=== PATIENT | male | born 1940 | race African-American/Black ===

== ENCOUNTER → 2018-07-01 | Emergency (ER) | payer MEDICARE, OTHER ==
[~2018-07-01] VITALS: Ht 170.2 cm; Wt 82.0 kg
[~2018-07-01] MED LIST: tranexamic acid 100mg/ml inj. TP ONE
--- NOTE | 2018-07-01 01:04 | NUR ---
dr maza at bedside spraying txa to right nares and nose clip reapplied. at bedside.
[2018-07-01 01:24] VITALS: BP 116/73
--- NOTE | 2018-07-01 01:24 | NUR ---
dr maza talking with pt and . bleeding to the nose has stopped. pt now dc ready
--- NOTE | 2018-07-01 01:35 | NUR ---
pt stood up and nose began to bleed intermittently again and pt and concerned. Dr. maza back in to talk with them and explained that he is still ok to dc and no further treatment needed at this time as he does not want to placed anything into the nostril at this time. Pt is agreeble to dc now. stable vs.
== END | disposition home or self-care (01) ==
LOC: ER 00:27
DX: R04.0 Epistaxis (principal); J44.9 Chronic obstructive pulmonary disease, unspecified; E11.9 Type 2 diabetes mellitus without complications
CPT/HCPCS: 99282

== ENCOUNTER 2020-04-30 10:10 | Emergency (ER) | payer MEDICARE, OTHER ==
[~2020-04-30] VITALS: Ht 167.6 cm; Wt 94.1 kg
[~2020-04-30 10:10] MED LIST changes: +ALLO100T PO; +GABA-530 PO; +HYDR120O2 TOP; +LOSA1TAB3 PO; +METF1000 PO; +MONT10TA26 PO; +OMEP-50 PO; +PRAV20TA4 PO; +SENN-263 PO; +SILD100T PO; +TIOT18CA3 INH; -tranexamic acid 100mg/ml inj. TP ONE
[2020-04-30] MEDS ORDERED: azithromycin/NS 500mg/250ml 250 ML IV ONE (11:10)
[2020-04-30] MEDS ORDERED: CefTRIAXone/D5W-Rocephin 1gm 50 ML IV ONE (11:10)
[2020-04-30 13:06] LABS: C-REACTIVE PROTEIN 6.75 MG/DL (0.0-0.5)
[2020-04-30] MEDS ORDERED: AZIT-63 PO (14:40)
[2020-04-30 15:23] VITALS: BP 141/81
== END 2020-04-30 15:25 | disposition home or self-care (01) ==
LOC: ER 10:11
DX: U07.1 COVID-19 (principal); R07.89 Other chest pain; R50.9 Fever, unspecified; R05 Cough; R06.02 Shortness of breath; R53.1 Weakness; J44.9 Chronic obstructive pulmonary disease, unspecified; E11.9 Type 2 diabetes mellitus without complications; Z90.49 Acquired absence of other specified parts of digestive tract; Z79.899 Other long term (current) drug therapy
CPT/HCPCS: 36415; 71045; 82728; 83605; 83615; 84145; 86140; 87040; 87635; 96365; 96368; 99285; C9803; J0456; J0696

== ENCOUNTER 2022-08-12 04:13 | Emergency (ER) | payer OTHER, BC ==
[~2022-08-12] VITALS: Ht 167.6 cm; Wt 78.2 kg
[~2022-08-12 04:13] MED LIST changes: +LOSA-420 PO; -LOSA1TAB3 PO; +MONT-40 PO; -MONT10TA26 PO; -OMEP-50 PO; +OMEP20CA16 PO
[2022-08-12 04:17] VITALS: BP 135/72
--- NOTE | 2022-08-12 04:46 | NUR ---
WOUND CLEANED WITH 100ML NACL
[2022-08-12] MEDS ORDERED: LIDOCAINE 2%/EPI 1:100,000 inj. Multi-dose 20 ML VIAL SQ ONE (04:50)
--- NOTE | 2022-08-12 05:49 | NUR ---
DRESSING APPLIED TO LAC REPAIR
== END 2022-08-12 05:50 | disposition home or self-care (01) ==
LOC: ER 04:15
DX: S01.311A Laceration without foreign body of right ear, initial encounter (principal); E11.9 Type 2 diabetes mellitus without complications; J44.9 Chronic obstructive pulmonary disease, unspecified; Z79.899 Other long term (current) drug therapy; Z79.1 Long term (current) use of non-steroidal anti-inflammatories (NSAID); X58.XXXA Exposure to other specified factors, initial encounter; Y93.89 Activity, other specified; Y92.89 Other specified places as the place of occurrence of the external cause; Y99.8 Other external cause status
CPT/HCPCS: 12013; 99282; A6449

== ENCOUNTER 2022-08-17 13:55 | Emergency (ER) | payer OTHER, BC ==
[~2022-08-17] VITALS: Ht 170.2 cm; Wt 76.8 kg
[2022-08-17 14:10] VITALS: BP 149/74
== END 2022-08-17 19:11 | disposition home or self-care (01) ==
LOC: ER 13:56
DX: S01.81XD Laceration without foreign body of other part of head, subsequent encounter (principal); J44.9 Chronic obstructive pulmonary disease, unspecified; E11.9 Type 2 diabetes mellitus without complications; Z90.49 Acquired absence of other specified parts of digestive tract; Z79.84 Long term (current) use of oral hypoglycemic drugs; Z79.899 Other long term (current) drug therapy; X58.XXXD Exposure to other specified factors, subsequent encounter
CPT/HCPCS: 99281; 99282

== ENCOUNTER 2023-04-19 18:17 | Emergency (ER) | payer OTHER, BC ==
[~2023-04-19] VITALS: Ht 170.2 cm; Wt 64.4 kg
[2023-04-19 18:32] VITALS: TEMP 98.5
[2023-04-19] MEDS ORDERED: HYDROcodone/acetaminophen 5mg/325mg tablet PO ONE (21:35)
[2023-04-19 22:10] LABS: BASOPHILS % (AUTO) 0.4 % (0-1); EOSINOPHILS # (AUTO) 0.1 X10'3 (0-0.9); EOSINOPHILS % (AUTO) 0.9 % (0-6); HEMATOCRIT 34.8 % (42.0-52.0); HEMOGLOBIN 11.7 g/dl (14.0-17.9); LYMPHOCYTES # (AUTO) 1.2 X10'3 (1.1-4.8); LYMPHOCYTES % (AUTO) 11.9 % (21-51); MEAN CORPUSCULAR HEMOGLOBIN 30.8 PG (27.0-31.0); MEAN CORPUSCULAR HGB CONC 33.7 g/dL (33.0-36.5); MEAN CORPUSCULAR VOLUME 91.6 FL (78-98); MEAN PLATELET VOLUME 7.3 FL (7.4-10.4); MONOCYTES # (AUTO) 0.9 X10'3 (0-0.9); MONOCYTES % (AUTO) 8.8 % (2-12); NEUTROPHILS # (AUTO) 7.7 X10'3 (1.8-7.7); PLATELET COUNT 174 X10'3 (140-440); RED CELL DISTRIBUTION WIDTH 15.2 % (11.5-14.5); WHITE BLOOD COUNT 9.9 X10'3 (4.5-11.0)
[2023-04-19 22:22] LABS: BILIRUBIN,URINE NEGATIVE (Neg); CLARITY,URINE CLEAR (Clear); COLOR,URINE YELLOW (Yellow); GLUCOSE, URINE NEGATIVE (Neg); KETONES,URINE TRACE mg/dl (Neg); LEUKOCYTE ESTERASE ,URINE NEGATIVE (Neg); NITRITES, URINE NEGATIVE (Neg); OCCULT BLOOD,URINE SMALL (Neg); PH,URINE 5.5 (4.8-8.0); PROTEIN,URINE NEGATIVE (Neg)
[2023-04-19 22:27] LABS: ALBUMIN 3.5 G/DL (3.4-5.0); ANION GAP 7 (8-16); BLOOD UREA NITROGEN 13 MG/DL (7-18); BUN/CREATININE RATIO 11.3 (10.0-20.0); CALCIUM 9.9 MG/DL (8.5-10.1); CHLORIDE 104 MMOL/L (99-107); CREATININE 1.15 MG/DL (0.60-1.10); GLUCOSE 88 MG/DL (70-104); POTASSIUM 3.7 MMOL/L (3.5-5.1); SODIUM 140 MMOL/L (135-145); TOTAL CARBON DIOXIDE 29.2 MMOL/L (24-32); eCRCL 44 ML/MIN; eGFR 73 ML/MIN
[2023-04-19 22:30] LABS: UA COLLECTION TYPE CLN CATCH MIDSTREAM
[2023-04-19 22:32] LABS: BACTERIA,URINE NONE SEEN /HPF (Neg); MUCUS STRANDS NONE SEEN /LPF (Neg); RBC,URINE 0-2 /HPF (0-2); SQUAMOUS EPITHELIAL CELL,UR FEW /LPF (FEW); WBC,URINE 0-4 /HPF (0-4)
[2023-04-19 23:45] VITALS: BP 151/75; PULSE 65; RESP 16; O2SAT 99
== END 2023-04-20 00:31 | disposition home or self-care (01) ==
LOC: ER 18:18
DX: I80.02 Phlebitis and thrombophlebitis of superficial vessels of left lower extremity (principal); J44.9 Chronic obstructive pulmonary disease, unspecified; E11.9 Type 2 diabetes mellitus without complications; Z79.899 Other long term (current) drug therapy; Z90.49 Acquired absence of other specified parts of digestive tract
CPT/HCPCS: 36415; 73560; 80048; 81001; 85025; 93970; 99284

== ENCOUNTER 2024-02-01 03:40 | Emergency (ER) | payer BC, OTHER ==
[~2024-02-01] VITALS: Ht 167.6 cm; Wt 189.0 kg
[2024-02-01] MEDS: benzonatate 100mg capsule PO ONE (05:02)
[2024-02-01] MEDS: ipratropium/albuterol 3ml nebule NEB ONE (05:06)
[2024-02-01 05:09] VITALS: PULSE 71; RESP 16; O2SAT 99
[2024-02-01 05:16] VITALS: PULSE 61; RESP 18; O2SAT 100
[2024-02-01 05:30] LABS: BASOPHILS % (AUTO) 1.3 % (0-1); EOSINOPHILS # (AUTO) 0.1 X10'3 (0-0.9); EOSINOPHILS % (AUTO) 1.6 % (0-6); HEMATOCRIT 33.4 % (42.0-52.0); HEMOGLOBIN 11.2 g/dl (14.0-17.9); LYMPHOCYTES # (AUTO) 1.1 X10'3 (1.1-4.8); LYMPHOCYTES % (AUTO) 15.3 % (21-51); MEAN CORPUSCULAR HEMOGLOBIN 30.1 PG (27.0-31.0); MEAN CORPUSCULAR HGB CONC 33.4 g/dL (33.0-36.5); MONOCYTES # (AUTO) 0.9 X10'3 (0-0.9); MONOCYTES % (AUTO) 12.9 % (2-12); NEUTROPHILS % (AUTO) 68.9 % (42-75); PLATELET COUNT 196 X10'3 (140-440); RED BLOOD COUNT 3.72 X10'6 (4.70-6.10); RED CELL DISTRIBUTION WIDTH 15.5 % (11.5-14.5); WHITE BLOOD COUNT 7.3 X10'3 (4.5-11.0)
[2024-02-01 05:31] LABS: BASOPHILS # (AUTO) 0.1 X10'3 (0-0.2)
[2024-02-01 05:55] LABS: ALBUMIN 2.9 G/DL (3.4-5.0); ANION GAP 7 (8-16); BLOOD UREA NITROGEN 21 MG/DL (7-18); BUN/CREATININE RATIO 16.7 (10.0-20.0); CALCIUM 9.2 MG/DL (8.5-10.1); CHLORIDE 106 MMOL/L (99-107); CREATININE 1.26 MG/DL (0.60-1.10); GLUCOSE 103 MG/DL (70-104); POTASSIUM 3.2 MMOL/L (3.5-5.1); PRO BRAIN NATRIURETIC PEPTIDE 197 PG/ML (0-450); SODIUM 138 MMOL/L (135-145); TOTAL CARBON DIOXIDE 25.3 MMOL/L (24-32); eCRCL 39 ML/MIN; eGFR 66 ML/MIN
[2024-02-01] MEDS ORDERED: BENZ-38 PO (05:59)
[2024-02-01 06:50] VITALS: BP 112/62; PULSE 83; RESP 18; TEMP 98.4; O2SAT 97
== END 2024-02-01 06:54 | disposition home or self-care (01) ==
LOC: ER 03:41
DX: J22 Unspecified acute lower respiratory infection (principal); J02.9 Acute pharyngitis, unspecified; I10 Essential (primary) hypertension; J45.909 Unspecified asthma, uncomplicated; J44.9 Chronic obstructive pulmonary disease, unspecified; E11.9 Type 2 diabetes mellitus without complications; G47.39 Other sleep apnea; Z90.49 Acquired absence of other specified parts of digestive tract; Z79.899 Other long term (current) drug therapy; Z79.84 Long term (current) use of oral hypoglycemic drugs; Z20.822 Contact with and (suspected) exposure to COVID-19
CPT/HCPCS: 36415; 71045; 80048; 83605; 83880; 85025; 87040; 87811; 94640; 94760; 99284

== ENCOUNTER 2024-11-17 17:20 | Emergency (ER) | payer OTHER, BC ==
[~2024-11-17] VITALS: Ht 167.6 cm; Wt 78.2 kg
[~2024-11-17 17:20] MED LIST changes: -HYDR120O2 TOP; -METF1000 PO; -OMEP20CA16 PO; +PANT-47 PO; -SENN-263 PO; +SENN-360 PO
--- NOTE | 2024-11-17 18:18 | Physician Documentation ---
History of Present Illness ~ Chief Complaint: Hypotension Stated Complaint: LIGHT HEADED Time Seen by MD: 18:16 Primary Medical Doctor: mateo DANGELO Patient presents to the emergency room with generalized weakness over the past four days. Patient is typically very active but he in his primary care as well as his family members have noticed significant decline in his status over the past four days. He does have a cough at baseline but possibly worse than usual. He denies any one-sided symptoms. That has talk of possible hypotension as well. No new medications. He was prescribed an antibiotic by his primary care for what he states was possible pneumonia that has yet to start it. He denies any nausea vomiting diarrhea or constipation or abdominal pain. Medication Reconciliation Allergies: Coded Allergies: No Known Allergies (Unverified , 11/17/24) Scheduled Allopurinol* (Allopurinol*), 2 TAB PO DAILY, (Reported) Gabapentin (Gabapentin), 1 CAP PO BID, (Reported) Losartan/Hydrochlorothiazide (Hyzaar 50-12.5 Tablet), 1 TAB PO DAILY, (Reported) Montelukast Sodium (Montelukast Sodium), 1 TAB PO DAILY, (Reported) Pantoprazole Sodium (PROTONIX tablet), 40 MG PO BID Pravastatin Sodium (Pravastatin Sodium), 1 TAB PO HS, (Reported) Sennosides (Senna), 2 TAB PO HS, (Reported) Tiotropium [place] (Spiriva), 1 CAP INH DAILY, (Reported) Scheduled PRN Sildenafil Citrate* (Viagra*), 1 TAB PO QDAY PRN PRN for Per Protocol, (Reporte d) Past Medical History Past Medical History: Hypertension, Asthma, COPD, Sleep Apnea, Diabetes Past Surgical History: cholecystectomy Patient History: FH: diabetes mellitus MOTHER FH: heart disease Sister Alcohol Use: None Drug Use: none Lives In: Home Review of Systems ROS All review of systems negative except as per HPI Physical Exam Vital Signs: Temperature: 97.3, Source: Oral, Heart Rate: 65, Respiratory Rate: 15, BP: 134/67, Pulse Oximetry: 98, Weight: 78.180 Physical Exam General: Patient is awake, alert, oriented x4 in no acute distress Head: Normocephalic and atraumatic. Eyes: Conjunctival normal. EOMI. PERRL. ENT: Mucous membranes moist. Neck: Supple, trachea is midline. Chest: Clear to auscultation bilaterally without rales, rhonchi, or wheezes. There is no accessory muscle use or retractions. Occasional cough Cardiac: RRR without murmurs, gallops, or rubs. Abd: Soft, nondistended, nontender, with normoactive bowel sounds. No guarding, rebound, or rigidity. Progress Progress Note Positive orthostatics. 1 L fluid ordered Results/Orders Results/Orders Orders - LARRY ROBERTSON MD Culture Blood (11/17/24 18:28) Chest,Single View (11/17/24 18:28) Completed Orders - LARRY ROBERTSON MD Cbc/Diff (11/17/24 18:28) MG (11/17/24 18:28) Chest,Single View (11/17/24 18:28) Procalcitonin (11/17/24 18:28) Lacticsepsis (11/17/24 18:28) CMP (11/17/24 18:28) Troponin (Single) (11/17/24 18:28) PBNP (11/17/24 18:28) Ua W/Microscopic, Cult If Ind (11/17/24 19:15) Normal Saline 1000ml (Sodium Chloride 10 (11/17/24 19:55) Medications Received in ER Medications (Trade) Dose Ordered Sig/Miguel Route PRN Reason Start Time Stop Time Status Last Admin Dose Admin Sodium Chloride 1,000 ml @ 1,000 mls/hr ONCE ONCE IV 11/17/24 19:55 11/17/24 20:54 DC 11/17/24 20:26 1,000 MLS/HR Vital Signs 11/17/24 11/17/24 11/17/24 11/17/24 17:52 18:40 18:41 18:42 Temp 97.3 Pulse 65 59 65 77 Resp 15 B/P (MAP) 134/67 149/76 150/70 107/64 Pulse Ox 98 11/17/24 11/17/24 11/17/24 19:11 19:18 21:40 Temp 97.3 Pulse 71 70 74 77 Resp 14 14 B/P (MAP) 142/75 (97) 146/73 116/72 133/71 Pulse Ox 100 Laboratory Tests Test 11/17/24 18:39 11/17/24 19:15 White Blood Count 5.5 Red Blood Count 3.93 L Hemoglobin 12.1 L Hematocrit 35.0 L Mean Corpuscular Volume 89.1 Mean Corpuscular Hemoglobin 30.8 Mean Corpuscular Hemoglobin Concent 34.6 Red Cell Distribution Width 14.9 H Platelet Count 202 Mean Platelet Volume 6.9 L Neutrophils (%) (Auto) 63.9 Lymphocytes (%) (Auto) 26.3 Monocytes (%) (Auto) 8.1 Eosinophils (%) (Auto) 0.9 Basophils (%) (Auto) 0.8 Neutrophils # (Auto) 3.5 Lymphocytes # (Auto) 1.5 Monocytes # (Auto) 0.4 Eosinophils # (Auto) 0.0 Basophils # (Auto) 0.0 CBC Comment Sodium Level 140 Potassium Level 3.3 L Chloride Level 104 Carbon Dioxide Level 31.0 Anion Gap 5 L Blood Urea Nitrogen 11 Creatinine 1.17 H Estimated GFR/1.73 m2 72 BUN/Creatinine Ratio 9.4 L Glucose Level 79 Lactic Acid Level 1.4 Calcium Level 9.4 Magnesium Level 1.9 Total Bilirubin 1.1 H Aspartate Amino Transf (AST/SGOT) 16 Alanine Aminotransferase (ALT/SGPT) 25 Alkaline Phosphatase 94 Troponin I High Sensitivity 9 Pro-B-Type Natriuretic Peptide < 30 Total Protein 6.9 Albumin 3.4 Globulin 3.5 Albumin/Globulin Ratio 1.0 L Procalcitonin < 0.05 Chemistry Comments Urine Specimen Description Urinal Urine Color Yellow Urine Clarity Clear Urine pH 6.0 Urine Specific [place] 1.015 Urine Protein Negative Urine Glucose (UA) Negative Urine Ketones Negative Urine Occult Blood Small Urine Nitrite Negative Urine Bilirubin Negative Urine Urobilinogen 0.2 Urine Leukocyte Esterase Negative Urine RBC 3-10 Urine WBC 0-4 Urine Squamous Epithelial Cells Few Urine Bacteria None seen Urine Culture Indicated Not ind Volume Urine Centrifuged 10 ml Urine Comment Microbiology Date/Time Source Procedure Growth Status 11/17/24 18:47 Blood Hand Left Blood Culture - Preliminary NEGATIVE (LESS THAN 24 HOURS) Resulted EKG/XRAY/CT/US/VASC/MRI EKG : Additional Comment EKG interpreted by myself shows time of 1735, rate 60, sinus rhythm, normal axis, no ST changes Medical Decision Making Findings Patient presents to the emergency room with dizziness upon standing. Differentials include but are not limited to dehydration, orthostasis, stroke, labyrinthitis, vertigo therefore emergent labs ordered. Labs reassuring however orthostasis was noted upon vital signs. Patient received 1 L of IV fluids in his symptoms have completely resolved and he feels better and has passed the road test. Discussed the need to stay hydrated in his double as efforts of hydration. As the neurologic exam is reassuring I do not feel he requires CT scan of the head. ER precautions discussed. I have also discussed with him that if he does feel dizzy that he needs to sit down to avoid falling and he has acknowledged with the need to do this. He is accompanied by his significant other who feels comfortable with discharge. Departure Disposition: HOME / SELF CARE / HOMELESS Impression: Primary Impression: Dehydration Condition: Improved Discharge Instructions: Orthostatic Hypotension, Dehydration, Adult, [id number] Additional Instructions: Double your hydration efforts. Avoid falling and if you feel dizzy you need to sit down Referrals: NO PRIMARY CARE PROVIDER (PCP) Education Educated: Patient Educated regarding: diagnosis, treatment, need for follow up Signature Scribe Signature: No scribe Attestation: The note accurately reflects work and decisions made by me.Larry Robertson MD 11/17/24 21:56 LARRY ROBERTSON MD November 17, 2024 18:18
--- NOTE | 2024-11-17 19:10 | RADIOLOGY REPORT ---
CHEST RADIOGRAPH Indication: SEPSIS Technique: Single frontal view of the chest was obtained COMPARISON: DI CHEST,SINGLE VIEW on DOS: 02/01/24, CHEST,SINGLE VIEW on DOS: 04/30/20 FINDINGS: Lines and Tubes: None Lungs: Clear Pleura: No effusion. No pneumothorax. Cardiomediastinal contours: Unremarkable IMPRESSION: No abnormality demonstrated.
[2024-11-17 19:11] LABS: BASOPHILS % (AUTO) 0.8 % (0-1); EOSINOPHILS % (AUTO) 0.9 % (0-6); HEMOGLOBIN 12.1 g/dl (14.0-17.9); LYMPHOCYTES # (AUTO) 1.5 X10'3 (1.1-4.8); LYMPHOCYTES % (AUTO) 26.3 % (21-51); MEAN CORPUSCULAR HEMOGLOBIN 30.8 PG (27.0-31.0); MEAN CORPUSCULAR HGB CONC 34.6 g/dL (33.0-36.5); MEAN CORPUSCULAR VOLUME 89.1 FL (78-98); MEAN PLATELET VOLUME 6.9 FL (7.4-10.4); MONOCYTES # (AUTO) 0.4 X10'3 (0-0.9); MONOCYTES % (AUTO) 8.1 % (2-12); NEUTROPHILS # (AUTO) 3.5 X10'3 (1.8-7.7); NEUTROPHILS % (AUTO) 63.9 % (42-75); PLATELET COUNT 202 X10'3 (140-440); RED BLOOD COUNT 3.93 X10'6 (4.70-6.10); RED CELL DISTRIBUTION WIDTH 14.9 % (11.5-14.5); WHITE BLOOD COUNT 5.5 X10'3 (4.5-11.0)
[2024-11-17 19:28] LABS: BILIRUBIN,URINE NEGATIVE (Neg); CLARITY,URINE CLEAR (Clear); COLOR,URINE YELLOW (Yellow); GLUCOSE, URINE NEGATIVE (Neg); KETONES,URINE NEGATIVE (Neg); LEUKOCYTE ESTERASE ,URINE NEGATIVE (Neg); NITRITES, URINE NEGATIVE (Neg); OCCULT BLOOD,URINE SMALL (Neg); PROTEIN,URINE NEGATIVE (Neg); UROBILINOGEN,URINE 0.2 E.U/dL (0.2-1.0)
[2024-11-17 19:34] LABS: UA COLLECTION TYPE URINAL
[2024-11-17 19:36] LABS: BACTERIA,URINE NONE SEEN /HPF (Neg); SQUAMOUS EPITHELIAL CELL,UR FEW /LPF (FEW); WBC,URINE 0-4 /HPF (0-4)
[2024-11-17 19:37] LABS: ALANINE AMINOTRANSFERASE 25 U/L (12-78); ALBUMIN 3.4 G/DL (3.4-5.0); ALKALINE PHOSPHATASE 94 IU/L (46-116); ANION GAP 5 (8-16); ASPARTATE AMINO TRANSFERASE 16 U/L (10-37); BILIRUBIN,TOTAL 1.1 MG/DL (0.1-1.0); BLOOD UREA NITROGEN 11 MG/DL (7-18); BUN/CREATININE RATIO 9.4 (10.0-20.0); CALCIUM 9.4 MG/DL (8.5-10.1); CHLORIDE 104 MMOL/L (99-107); CREATININE 1.17 MG/DL (0.60-1.10); GLUCOSE 79 MG/DL (70-104); MAGNESIUM 1.9 MG/DL (1.5-2.4); POTASSIUM 3.3 MMOL/L (3.5-5.1); PRO BRAIN NATRIURETIC PEPTIDE < 30 PG/ML (0-450); SODIUM 140 MMOL/L (135-145); TOTAL PROTEIN 6.9 G/DL (6.4-8.2); eCRCL 42 ML/MIN; eGFR 72 ML/MIN
[2024-11-17] MEDS: normal saline 1000ml 1,000 ML IV ONE (20:26)
[2024-11-17 22:18] VITALS: BP 138/70; PULSE 74; RESP 15; TEMP 97.3; O2SAT 98
--- NOTE | 2024-11-18 06:15 | ELECTROCARDIOGRAPH REPORT ---
[facility] Test Date: 2024-11-17 Test Time: 17:35:37 Pat Name: SUSHIL OLIVARES Department: EMERGENCY ROOM Room: Gender: M Hospital Carrier: : 1940 Requested By: DEPARTMENT EMERGENCY Order Number: [id number] Reading MD: Dr. Derrick Rose Measurements Intervals [place] Rate: 60 P: 66 DE: 174 QRS: 14 QRSD: 92 T: 28 QT: 392 QTc: 392 Interpretive Statements Sinus rhythm Abnormal R-wave progression, early transition Electronically Signed On 11-19-2024 6:41:[address] Derrick Rose Please click the below link to view image of tracing.
== END 2024-11-17 22:20 | disposition home or self-care (01) ==
LOC: ER 17:21
DX: E86.0 Dehydration (principal); J44.9 Chronic obstructive pulmonary disease, unspecified; E11.9 Type 2 diabetes mellitus without complications; G47.30 Sleep apnea, unspecified; I10 Essential (primary) hypertension; Z90.49 Acquired absence of other specified parts of digestive tract
CPT/HCPCS: 36415; 71045; 80053; 81001; 83605; 83735; 83880; 84145; 84484; 85025; 87040; 93005; 96360; 99285; J7030